=== PATIENT | male | born 1995 | race Caucasian/White ===

== ENCOUNTER 2019-04-28 18:30 | Emergency (ER) | payer OTHER ==
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
[2019-04-28 18:47] VITALS: BP 115/67; PULSE 75; TEMP 98.3; BMI 32.3
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
== END 2019-04-28 20:19 | disposition home or self-care (01) ==
LOC: JERFT 18:30
DX: S89.81XA Other specified injuries of right lower leg, initial encounter (principal); V49.59XA Passenger injured in collision with other motor vehicles in traffic accident, initial encounter; Y92.414 Local residential or business street as the place of occurrence of the external cause; Y93.89 Activity, other specified; Y99.8 Other external cause status
CPT/HCPCS: 73590-TC-RT-FY; 73610-TC-RT-FY; 73630-TC-RT-FY; 99281-25